=== PATIENT | female | born 1945 | race Caucasian/White ===

== ENCOUNTER 2018-02-28 13:02 | Outpatient (CLI) | payer MEDICARE, OTHER ==
[~2018-02-28] VITALS: Ht 162.6 cm; Wt 77.6 kg
[2018-02-28 13:50] VITALS: BP 163/90
[2018-02-28] MEDS ORDERED: ATORVASTATIN CA20 MG ORAL (13:58)
[2018-02-28] MEDS ORDERED: VITAMIN D400 INTLU ORAL (13:58)
[2018-02-28] MEDS ORDERED: METFORMIN HCL500 M1 ORAL (13:58)
[2018-02-28] MEDS ORDERED: IRBESARTAN-HCT1 EAC2 PO (13:58)
[2018-02-28] MEDS ORDERED: AMLODIPINE BESYL5 MG ORAL (13:58)
--- NOTE | 2018-02-28 14:51 | GI Initial Consult Note ---
History of Present Illness General Date patient seen: Feb 28, 2018 Time patient seen: 14:47 Referring physician: VINICIO Reason for Consultation: ABDOMINAL PAIN Present Illness HPI 72 year old female patient referred by Dr. Beavers for evaluation of epigastric pain x 3 months. In addition, presents with constipation. The patient last colonoscopy was performed in July 2016. Denies any unintentional weight loss or changes in dietary habits. No signs of abuse or neglect. Patient is not fall risk. Home Meds Reported Medications Amlodipine Besylate* (AMLODIPINE BESYLATE*) 5 Mg Tablet, 5 MG ORAL DAILY, TAB 02/28/18 Irbesartan/Hydrochlorothiazide (IRBESARTAN-HCTZ 300-12.5 MG TB) 1 Each Tablet, 1 EACH PO DAILY, TAB 02/28/18 Metformin Hcl* (METFORMIN HCL*) 500 Mg Tablet, 500 MG ORAL TWICE A DAY, TAB 02/28/18 Vitamin D (Vitamin D3) 400 Unit Tablet, 400 UNITS ORAL DAILY, TAB 02/28/18 Atorvastatin Calcium* (ATORVASTATIN CALCIUM*) 20 Mg Tablet, 20 MG ORAL BEDTIME, TAB 02/28/18 Med list reviewed/reconciled: Yes Allergies: Coded Allergies: No Known Allergies (Unverified , 02/28/18) Patient History History Provided By: Patient, Medical Record PMH Narrative HTN DM Lt breast CA Rt knee ligament tear Past Surgical History: 2011 Lt Lumpectomy partial hysterectomy with ovary removal Rt knee Pertinent Family History: none Social History: Reports: other - coffee Review of Systems All Other Systems: negative except mentioned in HPI Physical Exam Vital Signs Date Time Temp Pulse Resp B/P (MAP) Pulse Ox O2 Delivery O2 Flow Rate FiO2 02/28/18 13:50 98.1 93 16 163/90 95 98.1 Sp02 EP Interpretation: reviewed, normal General Appearance: well appearing, no apparent distress, alert Head: normocephalic EENT: PERRL/EOMI, normal ENT inspection Neck: supple Respiratory: normal breath sounds, no respiratory distress Cardiovascular: normal rate Gastrointestinal: normal inspection, non tender, soft, normal bowel sounds, non -distended Rectal: deferred Genitourinary: no CVA tenderness Musculoskeletal: normal inspection, back normal Neurologic: normal inspection, alert, oriented x3, responsive Psychiatric: normal inspection, judgement/insight normal, memory normal Skin: normal inspection, normal color, no rash, warm/dry, palpation normal, well hydrated Lymphatic: normal inspection, no adenopathy GI: Plan Problems: (1) GERD (gastroesophageal reflux disease) (2) Abdominal pain (3) Constipation Plan Hx of colonoscopy in 2015 EGD scheduled 03/11/18. - NPO day prior procedure explained to patient. Rx Ibuprofen 800mg Seen with Dr. Moreno. Thank you for this patient referral. The patient was seen and examined at bedside and all new and available data was reviewed in the patients chart. I agree with the above findings, impression and plan. (Patient seen earlier today. Signature stamp does not reflect patient encounter time.). - MD Roselia Montoya AnhDolores BINDERY MACHINE OPERATOR Feb 28, 2018 14:51
== END 2018-02-28 13:35 | disposition home or self-care (01) ==
LOC: PAN 13:02
DX: K21.9 Gastro-esophageal reflux disease without esophagitis (principal); R10.9 Unspecified abdominal pain; K59.00 Constipation, unspecified; I10 Essential (primary) hypertension; E11.9 Type 2 diabetes mellitus without complications; Z85.3 Personal history of malignant neoplasm of breast; Z90.710 Acquired absence of both cervix and uterus; Z90.721 Acquired absence of ovaries, unilateral
CPT/HCPCS: 99201

== ENCOUNTER 2018-03-14 08:23 | Day surgery (SDC) | payer MEDICARE, OTHER ==
[~2018-03-14] VITALS: Ht 162.6 cm; Wt 77.6 kg
[~2018-03-14 08:23] MED LIST: AMLODIPINE BESYL5 MG ORAL; ATORVASTATIN CA20 MG ORAL; IRBESARTAN-HCT1 EAC2 PO; METFORMIN HCL500 M1 ORAL; VITAMIN D400 INTLU ORAL
[2018-03-14 08:47] VITALS: BP 144/76
[2018-03-14] MEDS ORDERED: LR 1000ml 1,000 ML IVLG SCH (09:57)
[2018-03-14] MEDS ORDERED: Midazolam 2mg/2ml Inj ONE (09:59)
[2018-03-14] MEDS ORDERED: LR 1000ml ONE (09:59)
[2018-03-14] MEDS ORDERED: Lidocaine 1% MPF 10mg/ml 5ml ONE (09:59)
[2018-03-14] MEDS ORDERED: Propofol 200mg/20ml IV ONE (09:59)
[2018-03-14] MEDS ORDERED: Midazolam 2mg/2ml Inj IVP PRN (10:00)
[2018-03-14] MEDS ORDERED: LORazepam Inj 2mg/ml 1ml IV PRN (10:00)
[2018-03-14] MEDS ORDERED: DiphenhydrAMINE 50mg/ml Inj IVP PRN (10:00)
[2018-03-14] MEDS ORDERED: Hydromorphone 0.5mg/0.5ml inj IVP PRN (10:00)
[2018-03-14] MEDS ORDERED: Norco 5mg/325mg tab ORAL PRN (10:00)
[2018-03-14] MEDS ORDERED: Metoclopramide 10mg/2ml Inj IVP PRN (10:00)
[2018-03-14] MEDS ORDERED: Ketorolac 30mg Inj IV PRN ×2 (10:00)
[2018-03-14] MEDS ORDERED: Atropine Inj 1mg/10ml Syr IV PRN (10:00)
[2018-03-14] MEDS ORDERED: oxyCODONE HCL/Acetaminophen 5/325mg ORAL PRN (10:00)
[2018-03-14] MEDS ORDERED: Labetalol 5mg/ml 20ml vial IV PRN (10:00)
[2018-03-14] MEDS ORDERED: HYDROcodone/Acetamin 7.5/325 tab ORAL PRN (10:00)
[2018-03-14] MEDS ORDERED: fentaNYL 100 mcg/2 mL IV PRN (10:00)
--- NOTE | 2018-03-14 10:02 | Short Stay Surgery H&P ---
History of Present Illness History of Present Illness Chief Complaint see recent office note HPI Michelle Donaldson is a 72 year old female who was admitted on for GERD, Patient History Allergies: Coded Allergies: No Known Allergies (Unverified , 03/14/18) Medication History Scheduled Amlodipine Besylate* (Amlodipine Besylate*), 5 MG ORAL DAILY, (Reported) Atorvastatin Calcium* (Atorvastatin Calcium*), 20 MG ORAL BEDTIME, (Reported) Irbesartan/Hydrochlorothiazide (Irbesartan-Hctz 300-12.5 Mg Tb), 1 EACH PO DAILY , (Reported) Metformin Hcl* (Metformin Hcl*), 500 MG ORAL TWICE A DAY, (Reported) Vitamin D (Vitamin D3), 400 UNITS ORAL DAILY, (Reported) Physical Exam Vital Signs Last Vital Signs Date Time Temp Pulse Resp B/P (MAP) Pulse Ox O2 Delivery O2 Flow Rate FiO2 03/14/18 08:56 Room Air 03/14/18 08:47 97.9 76 18 144/76 (98) 97 97.9 Plan Attestation Are the patient's medical conditions optimized for surgery? Enmanuel Moreno MD Mar 14, 2018 10:02
--- NOTE | 2018-03-14 10:02 | Pre-Procedure Note/Attestation ---
Pre-Procedure Note/Attestation Complete Prior to Procedure Planned Procedure: not applicable Procedure Narrative: esophagogastroduodenoscopy and colonoscopy Indications for Procedure Pre-Operative Diagnosis: screening colon, GERD Attestation I attest that I discussed the nature of the procedure; its benefits; risks and complications; and alternatives (and the risks and benefits of such alternatives ), prior to the procedure, with the patient (or the patient's legal shared services representative). I attest that, if there was a reasonable possibility of needing a blood transfusion, the patient (or the patient's legal shared services representative) was given the [facility] standardized written summary, pursuant to the Jarocho Melvin Blood Safety Act ([place] Health and Safety Code # 1645, as amended). I attest that I re-evaluated the patient just prior to the surgery and that there has been no change in the patient's H&P, except as documented below: Enmanuel Moreno MD Mar 14, 2018 10:02
--- NOTE | 2018-03-14 10:17 | Anethesia Preoperative Eval ---
Anesthesia Pre-op PMH/ROS General Date of Evaluation: Mar 14, 2018 Time of Evaluation: 09:59 Anesthesiologist: Brad ASA Score: ASA 4 Mallampati Score Class I : Soft palate, uvula, fauces, pillars visible Class II: Soft palate, uvula, fauces visible Class III: Soft palate, base of uvula visible Class IV: Only hard plate visible Mallampati Classification: Class III Surgeon: Josh Diagnosis: Abd Pain Surgical Procedure: EGD Anesthesia History: none Social History: current smoker Family History: no anesthesia problems Allergies: Coded Allergies: No Known Allergies (Unverified , 03/14/18) Medications: see eMAR Past Medical History Cardiovascular: Reports: HTN, other - HL Pulmonary: Reports: COPD - Smoker Endocrine: Reports: DM Hematology/Immune: Reports: other - Breast CA Anesthesia Pre-op Phys. Exam Physician Exam Last Vital Signs Date Time Temp Pulse Resp B/P (MAP) Pulse Ox O2 Delivery O2 Flow Rate FiO2 03/14/18 08:56 Room Air 03/14/18 08:47 97.9 76 18 144/76 (98) 97 97.9 Constitutional: NAD Neurologic: CN 2-12 intact Cardiovascular: RRR Respiratory: CTA Gastrointestinal: S/NT/ND Airway Exam Mallampati Score: Class III MO: limited ROM: limited Teeth: missing, intact Anesthesia Pre-op A/P Risk Assessment & Plan Assessment: ASA 4 Plan: TIVA Status Change Before Surgery: No Ze Salinas MD Mar 14, 2018 10:17
--- NOTE | 2018-03-14 10:20 | Endoscopy Procedure Note ---
Endoscopy Procedure Note General Indication for Procedure: abd pain, GERD Procedures Performed: EGD Operative Findings/Diagnosis: gastritis Specimen: yes Pt Tolerated Procedure Well: Yes Estimated Blood Loss: none Anesthesia Anesthesiologist: scarlett Anesthesia: MAC Inserted Devices Implant(s) used?: No GI Core Measures 50 yrs or older w/o bx or poly: Not Applicable 10yrs. F/U not recommended: Not Applicable Enmanuel Moreno MD Mar 14, 2018 10:20
[2018-03-14 10:28] VITALS: BP 129/77
--- NOTE | 2018-03-14 10:30 | Immediate Post-Op Evaluation ---
Immediate Post-Op Evalulation Immediate Post-Op Evalulation Procedure: EGD Date of Evaluation: Mar 14, 2018 Time of Evaluation: 10:39 IV Fluids: 300 LR Blood Products: 0 Estimated Blood Loss: 1 Urinary Output: 0 Blood Pressure Systolic: 135 Blood Pressure Diastolic: 77 Pulse Rate: 86 Respiratory Rate: 16 O2 Sat by Pulse Oximetry: 100 Temperature (Fahrenheit): 97.4 Pain Score (1-10): 0 Nausea: No Vomiting: No Complications 0 Patient Status: awake, reacts, patent, none Hydration Status: adequate Ze Salinas MD Mar 14, 2018 10:30
--- NOTE | 2018-03-14 10:31 | 48 Hour Post Anesthesia Eval ---
Post Anesthesia Evaluation Procedure: EGD Date of Evaluation: Mar 14, 2018 Time of Evaluation: 12:44 Blood Pressure Systolic: 138 0: 73 Pulse Rate: 82 Respiratory Rate: 18 Temperature (Fahrenheit): 97.6 O2 Sat by Pulse Oximetry: 99 Airway: patent Nausea: No Vomiting: No Pain Intensity: 0 Hydration Status: adequate Cardiopulmonary Status: Stable Mental Status/LOC: patient returned to baseline Follow-up Care/Observations: 0 Post-Anesthesia Complications: 0 Follow-up care needed: ready to discharge Ze Salinas MD Mar 14, 2018 10:31
[2018-03-14 10:33] VITALS: BP_SYST 128; BP_SYST 131; BP_DIAS 74; BP_DIAS 75
[2018-03-14 11:05] VITALS: BP 113/69
[2018-03-14 11:25] VITALS: BP 123/70
--- NOTE | 2018-03-14 21:30 | Procedure Note ---
DATE OF PROCEDURE: 03/14/2018 SURGEON: Enmanuel Moreno M.D. REFERRING PHYSICIAN: Eduardo Beavers M.D. PROCEDURE: Upper endoscopy with biopsy. ANESTHESIA: Per Dr. Salinas. INSTRUMENT: Olympus adult flexible upper endoscope. INDICATION: Abdominal pain, chronic acid reflux disease, history of breast cancer. The procedure, risks, benefits, and possible consequences, including hemorrhage, aspiration, perforation and infection, and alternative treatments, were explained to the patient/legal guardian by Dr. Enmanuel Moreno and the patient/legal guardian understood and accepted these risks. DESCRIPTION OF PROCEDURE: After informed consent was obtained and the patient was adequately sedated, Olympus upper endoscope was advanced from mouth into the second portion of the duodenum and retroflexion was performed in the stomach. The patient has diffuse gastritis, moderate to severe, especially in the prepyloric region. There was a questionable maybe healing ulcer, but sure. Multiple biopsies from the antrum was obtained to rule out H. pylori infection. The rest of the examination grossly looked within normal limits. No obvious evidence of any bleeding or mass was seen in this endoscopic examination. The patient tolerated the procedure very well without any complications. SUMMARY OF FINDINGS: Gastritis, atypical, most likely looked like inflamed in the prepyloric region status post biopsy. RECOMMENDATIONS: Follow up biopsies and treat accordingly. Meanwhile, we will start the patient on omeprazole 40 mg by mouth daily. I want to thank, Dr. Eduardo Beavers, for this kind referral. Enmanuel Moreno M.D. DR: CORBY JOB#: [id number] CC: Eduardo Beavers M.D.; Fax#: [phone]
--- NOTE | 2018-03-15 14:14 | Cardiology Report ---
APPROVED REPORT EKG Measurement Heart [id number] Normal sinus rhythm Normal ECG
== END 2018-03-14 11:40 | disposition home or self-care (01) ==
LOC: GAS 08:23
DX: K29.50 Unspecified chronic gastritis without bleeding (principal); E78.5 Hyperlipidemia, unspecified; I10 Essential (primary) hypertension; E11.9 Type 2 diabetes mellitus without complications; F17.200 Nicotine dependence, unspecified, uncomplicated; J44.9 Chronic obstructive pulmonary disease, unspecified; Z85.3 Personal history of malignant neoplasm of breast
CPT/HCPCS: 43239; 82962; 93005; J2250; J2704; J7120; 94003; 94150

== ENCOUNTER 2018-04-11 13:22 | Outpatient (CLI) | payer MEDICARE, OTHER ==
--- NOTE | 2018-04-11 14:03 | GI Progress Note ---
Assessment/Plan Problems: (1) Gastritis ICD Codes: K29.70 - Gastritis, unspecified, without bleeding SNOMED: 6028227 (2) GERD (gastroesophageal reflux disease) ICD Codes: K21.9 - Gastro-esophageal reflux disease without esophagitis SNOMED: 762681977 (3) Abdominal pain ICD Codes: R10.9 - Unspecified abdominal pain SNOMED: 19724355 Status: stable Status Narrative Discussed with Dr. Moreno. Assessment/Plan SUMMARY OF FINDINGS: Gastritis, atypical, most likely looked like inflamed in the prepyloric region status post biopsy. >> bx negative RECOMMENDATIONS: cont Omeprazole 40 mg by mouth daily. RTC prn The patient was seen and examined at bedside and all new and available data was reviewed in the patients chart. I agree with the above findings, impression and plan. (Patient seen earlier today. Signature stamp does not reflect patient encounter time.). - Enmanuel Moreno MD Subjective Gastrointestinal/Abdominal: Reports: no symptoms Objective T 98.4 BP 143/66 P 87 95 RA General Appearance: WD/WN, no apparent distress, alert Cardiovascular: normal rate Respiratory/Chest: normal breath sounds, no respiratory distress Abdominal Exam: normal bowel sounds, non tender, soft Extremities: normal range of motion, non-tender Shahbaz Veloz NP Apr 11, 2018 14:03
== END 2018-04-11 13:55 | disposition home or self-care (01) ==
LOC: PAN 13:22
DX: K29.70 Gastritis, unspecified, without bleeding (principal); K21.9 Gastro-esophageal reflux disease without esophagitis; R10.9 Unspecified abdominal pain
CPT/HCPCS: 99212

== ENCOUNTER 2018-08-08 13:00 | Outpatient (CLI) | payer MEDICARE, OTHER ==
[2018-08-08] MEDS ORDERED: OMEPRAZOLE40 M1 ORAL (13:12)
[2018-08-08 13:15] VITALS: BP 138/70
--- NOTE | 2018-08-08 14:26 | GI Initial Consult Note ---
History of Present Illness General Date patient seen: Aug 08, 2018 Present Illness HPI 72 year old female patient referred by Dr. Beavers for evaluation of abdominal pain and constipation. The patient last colonoscopy was performed in July 2016. Patient had recent MRI performed in June of this year that noted 6mm cyst on the pancreatic tail. Denies any unintentional weight loss or changes in dietary habits. No signs of abuse or neglect. Patient is not fall risk. Home Meds Reported Medications Omeprazole (OMEPRAZOLE) 40 Mg Capsule.dr, 40 MG ORAL DAILY, CAP 08/08/18 Amlodipine Besylate* (AMLODIPINE BESYLATE*) 5 Mg Tablet, 5 MG ORAL DAILY, TAB 02/28/18 Irbesartan/Hydrochlorothiazide (IRBESARTAN-HCTZ 300-12.5 MG TB) 1 Each Tablet, 1 EACH PO DAILY, TAB 02/28/18 Metformin Hcl* (METFORMIN HCL*) 500 Mg Tablet, 500 MG ORAL TWICE A DAY, TAB 02/28/18 Vitamin D (Vitamin D3) 400 Unit Tablet, 400 UNITS ORAL DAILY, TAB 02/28/18 Atorvastatin Calcium* (ATORVASTATIN CALCIUM*) 20 Mg Tablet, 20 MG ORAL BEDTIME, TAB 02/28/18 Med list reviewed/reconciled: Yes Allergies: Coded Allergies: No Known Allergies (Unverified , 03/14/18) Patient History PMH Narrative HTN DM Lt breast CA Rt knee ligament tear Past Surgical History: 2011 Lt Lumpectomy partial hysterectomy with ovary removal Rt knee Pertinent Family History: none Social History: Reports: other - coffee Review of Systems All Other Systems: negative except mentioned in HPI Physical Exam Vital Signs Date Time Temp Pulse Resp B/P (MAP) Pulse Ox O2 Delivery O2 Flow Rate FiO2 08/08/18 13:15 98.1 78 16 138/70 95 Sp02 EP Interpretation: reviewed, normal General Appearance: well appearing, no apparent distress, alert Head: normocephalic EENT: PERRL/EOMI, normal ENT inspection Neck: supple Respiratory: normal breath sounds, no respiratory distress Cardiovascular: normal rate Gastrointestinal: normal inspection, non tender, soft, normal bowel sounds, non -distended Rectal: deferred Genitourinary: no CVA tenderness Musculoskeletal: normal inspection, back normal Neurologic: normal inspection, alert, oriented x3, responsive Psychiatric: normal inspection, judgement/insight normal, memory normal Skin: normal inspection, normal color, no rash, warm/dry, palpation normal, well hydrated Lymphatic: normal inspection, no adenopathy GI: Plan Problems: (1) Pancreatic cyst (2) Gastritis (3) Constipation (4) GERD (gastroesophageal reflux disease) (5) Abdominal pain Plan EUS scheduled 08/15/18. - NPO @ [place] day prior procedure explained. Will follow with additional recs post procedure. Seen with Dr. Moreno. Thank you for this patient referral. The patient was seen and examined at bedside and all new and available data was reviewed in the patients chart. I agree with the above findings, impression and plan. (Patient seen earlier today. Signature stamp does not reflect patient encounter time.). - MD [facility] Aug 08, 2018 14:26
== END 2018-08-08 13:30 | disposition home or self-care (01) ==
LOC: PAN 13:00
DX: K29.70 Gastritis, unspecified, without bleeding (principal); K59.00 Constipation, unspecified; K86.2 Cyst of pancreas; I10 Essential (primary) hypertension; E11.9 Type 2 diabetes mellitus without complications; Z85.3 Personal history of malignant neoplasm of breast; K21.9 Gastro-esophageal reflux disease without esophagitis
CPT/HCPCS: G0463

== ENCOUNTER 2018-08-15 06:55 | Day surgery (SDC) | payer MEDICARE, OTHER ==
[2018-08-15] VITALS (9 sets, daily range): BP systolic 127–139; BP diastolic 70–88
[~2018-08-15] VITALS: Ht 165.1 cm; Wt 77.1 kg
[~2018-08-15 06:55] MED LIST changes: +OMEPRAZOLE40 M1 ORAL
[2018-08-15] MEDS ORDERED: AMLODIPINE BESY10 MG ORAL (09:22)
[2018-08-15] MEDS ORDERED: ASPIRIN81 MG ORAL (09:22)
--- NOTE | 2018-08-15 09:24 | Pre-Procedure Note/Attestation ---
Pre-Procedure Note/Attestation Complete Prior to Procedure Planned Procedure: not applicable Procedure Narrative: EUS Indications for Procedure Pre-Operative Diagnosis: pancreatic cyst Attestation I attest that I discussed the nature of the procedure; its benefits; risks and complications; and alternatives (and the risks and benefits of such alternatives ), prior to the procedure, with the patient (or the patient's legal personal banking representative). I attest that, if there was a reasonable possibility of needing a blood transfusion, the patient (or the patient's legal personal banking representative) was given the [facility] standardized written summary, pursuant to the Jarocho Anna Blood Safety Act ([place] Health and Safety Code # 1645, as amended). I attest that I re-evaluated the patient just prior to the surgery and that there has been no change in the patient's H&P, except as documented below: Enmanuel Moreno MD Aug 15, 2018 09:24
--- NOTE | 2018-08-15 09:24 | Short Stay Surgery H&P ---
History of Present Illness History of Present Illness Chief Complaint see recent consult note HPI Michelle Donaldson is a 72 year old female who was admitted on for Pancreatic Cyst Patient History Allergies: Coded Allergies: No Known Allergies (Unverified , 03/14/18) Medication History Scheduled Amlodipine Besylate* (Amlodipine Besylate*), 10 MG ORAL BID, (Reported) Aspirin* (Aspirin*), 81 MG ORAL DAILY, (Reported) Atorvastatin Calcium* (Atorvastatin Calcium*), 20 MG ORAL BEDTIME, (Reported) Irbesartan/Hydrochlorothiazide (Irbesartan-Hctz 300-12.5 Mg Tb), 1 EACH PO DAILY , (Reported) Metformin Hcl* (Metformin Hcl*), 500 MG ORAL TWICE A DAY, (Reported) Vitamin D (Vitamin D3), 400 UNITS ORAL DAILY, (Reported) Discontinued Medications Amlodipine Besylate* (Amlodipine Besylate*), 5 MG ORAL DAILY, (Reported) Discontinued Reason: Prescription changed Omeprazole (Omeprazole), 40 MG ORAL DAILY, (Reported) Discontinued Reason: Pt stopped taking med Physical Exam Vital Signs Last Vital Signs Date Time Temp Pulse Resp B/P (MAP) Pulse Ox O2 Delivery O2 Flow Rate FiO2 08/15/18 09:18 97.7 75 18 127/71 98 Room Air Plan Attestation Are the patient's medical conditions optimized for surgery? Enmanuel Moreno MD Aug 15, 2018 09:24
[2018-08-15] MEDS ORDERED: Propofol 200mg/20ml IV ONE (09:30)
[2018-08-15] MEDS ORDERED: Lidocaine 1% MPF 10mg/ml 5ml ONE (09:30)
--- NOTE | 2018-08-15 10:16 | Endoscopy Procedure Note ---
Endoscopy Procedure Note General Indication for Procedure: panc cyst Procedures Performed: other - EUS Operative Findings/Diagnosis: same Specimen: none Pt Tolerated Procedure Well: Yes Estimated Blood Loss: none Anesthesia Anesthesiologist: jose elias Anesthesia: MAC Inserted Devices Implant(s) used?: No GI Core Measures 50 yrs or older w/o bx or poly: Not Applicable 10yrs. F/U not recommended: Not Applicable Enmanuel Moreno MD Aug 15, 2018 10:16
--- NOTE | 2018-08-15 14:31 | Anethesia Preoperative Eval ---
Anesthesia Pre-op PMH/ROS General Date of Evaluation: Aug 15, 2018 Time of Evaluation: 09:38 Anesthesiologist: jose elias ASA Score: ASA 3 Mallampati Score Class I : Soft palate, uvula, fauces, pillars visible Class II: Soft palate, uvula, fauces visible Class III: Soft palate, base of uvula visible Class IV: Only hard plate visible Mallampati Classification: Class II Surgeon: jayden Diagnosis: abdominal pain Surgical Procedure: egd/eus Anesthesia History: none Social History: smoking Family History: no anesthesia problems Allergies: Coded Allergies: No Known Allergies (Unverified , 03/14/18) Medications: see eMAR Patient NPO?: Yes Past Medical History Cardiovascular: Reports: HTN, other - hypercholesterolemia Gastrointestinal/Genitourinary: Reports: GERD Hematology/Immune: Reports: other - breast cancer Anesthesia Pre-op Phys. Exam Physician Exam Last Vital Signs Date Time Temp Pulse Resp B/P (MAP) Pulse Ox O2 Delivery O2 Flow Rate FiO2 08/15/18 10:35 73 18 138/80 100 Room Air 08/15/18 10:17 97.8 3 Constitutional: NAD Neurologic: CN 2-12 intact Cardiovascular: RRR Respiratory: CTA Gastrointestinal: S/NT/ND Airway Exam Mallampati Score: Class II MO: limited Neck: flexible TMD: 2fb ROM: limited Teeth: missing Anesthesia Pre-op A/P Risk Assessment & Plan Assessment: asa3 Plan: mac Status Change Before Surgery: No Pre-Antibiotics Drug: Michelle Barbosa MD Aug 15, 2018 14:31
--- NOTE | 2018-08-15 14:34 | Immediate Post-Op Evaluation ---
Immediate Post-Op Evalulation Immediate Post-Op Evalulation Procedure: egd/eus Date of Evaluation: Aug 15, 2018 Time of Evaluation: 10:29 IV Fluids: 700ml 0.9ns Blood Products: none Estimated Blood Loss: negligible Blood Pressure Systolic: 135 Blood Pressure Diastolic: 80 Pulse Rate: 78 Respiratory Rate: 18 O2 Sat by Pulse Oximetry: 100 Temperature (Fahrenheit): 97.8 Pain Score (1-10): 0 Nausea: No Vomiting: No Complications none Patient Status: awake, reacts, patent Hydration Status: adequate Drug: Michelle Barbosa MD Aug 15, 2018 14:34
--- NOTE | 2018-08-15 14:36 | 48 Hour Post Anesthesia Eval ---
Post Anesthesia Evaluation Procedure: egd/eus Date of Evaluation: Aug 15, 2018 Time of Evaluation: 10:31 0: 74 Pulse Rate: 78 Respiratory Rate: 18 Temperature (Fahrenheit): 97.8 O2 Sat by Pulse Oximetry: 100 Airway: patent Nausea: No Vomiting: No Pain Intensity: 0 Hydration Status: adequate Cardiopulmonary Status: stable Mental Status/LOC: patient returned to baseline Post-Anesthesia Complications: none Follow-up care needed: N/A Michelle Dawson MD Aug 15, 2018 14:36
[2018-08-15] MEDS ORDERED: Atropine Inj 1mg/10ml Syr IV PRN (14:45)
[2018-08-15] MEDS ORDERED: DiphenhydrAMINE 50mg/ml Inj IVP PRN (14:45)
[2018-08-15] MEDS ORDERED: Midazolam 2mg/2ml Inj IVP PRN (14:45)
[2018-08-15] MEDS ORDERED: fentaNYL 100 mcg/2 mL IV PRN (14:45)
--- NOTE | 2018-08-15 19:45 | Procedure Note ---
DATE OF PROCEDURE: 08/15/2018 SURGEON: Enmanuel Moreno M.D. ANESTHESIOLOGIST: Dr. Strickland. REFERRING PHYSICIAN: Eduardo Beavers M.D. PROCEDURE: Endoscopic ultrasound. ANESTHESIA: Per Dr. Strickland. INSTRUMENT: Olympus adult EUS scope. INDICATION: Pancreatic cyst, peripancreatic lymphadenopathy, prior history of malignancy. The procedure, risks, benefits, and possible consequences, including hemorrhage, aspiration, perforation and infection, and alternative treatments, were explained to the patient/legal guardian by Dr. Enmanuel Moreno and the patient/legal guardian understood and accepted these risks. DESCRIPTION OF PROCEDURE: After informed consent was obtained and the patient was adequately sedated, EUS radial scope was advanced from the mouth into the second portion of the duodenum and pancreatic parenchyma was carefully examined through the gastroduodenal mucosa. Starting scanning at GE junction, we saw the celiac axis without any obvious celiac axis lymphadenopathy. Left adrenal gland was seen without any adenoma. Then, the scope gently was advanced a little bit more into the stomach. The pancreatic body and tail were examined. No evidence of any obvious pancreatic duct dilatation. Actually, we could not see the pancreatic duct and the body or tail of the pancreas. On the report of the MRI, there was a 6 mm cystic lesion in the tail of the pancreas. 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 I doubt this is a cyst and if it is a cyst, most probably it is going to be simple, about 6 mm. Then the scope was advanced to the duodenal bulb and second portion of duodenum. Gallbladder was seen with multiple stones in it. Common bile duct was only measured 1.8 mm in size. No common bile duct stones. No common bile duct dilatation. The head of the pancreas grossly looked within normal limit. Ampulla was clearly seen without any pancreatic duct or common bile duct dilatation at the ampulla. No any other pathology was seen. The patient had mild fatty liver. The patient tolerated the procedure very well without any complication. SUMMARY OF FINDINGS: 1. No evidence of any obvious peripancreatic lymphadenopathy on this examination. 2. The 6 mm cyst seen in the tail of the pancreas seems to be an aneurysmal dilation of the splenic artery or if it is cyst, it is most probably a simple cyst. 3. Multiple gallstones. 4. Fatty liver. RECOMMENDATIONS: At this time, no obvious malignancy was seen in the pancreas. The patient is to follow as an outpatient. I want to thank Dr. Eduardo Beavers for this kind referral. Enmanuel Moreno M.D. DR: Mikhail JOB#: [id number] CC: Eduardo Beavers M.D.
== END 2018-08-15 11:30 | disposition home or self-care (01) ==
LOC: GAS 06:55
DX: K86.2 Cyst of pancreas (principal); K80.80 Other cholelithiasis without obstruction; K76.0 Fatty (change of) liver, not elsewhere classified; I10 Essential (primary) hypertension; K21.9 Gastro-esophageal reflux disease without esophagitis; M19.90 Unspecified osteoarthritis, unspecified site; F17.200 Nicotine dependence, unspecified, uncomplicated; E78.00 Pure hypercholesterolemia, unspecified; Z85.3 Personal history of malignant neoplasm of breast; Z79.82 Long term (current) use of aspirin
CPT/HCPCS: 43237; 82962; J2704; 94003; 94150